=== PATIENT | male | born 1930 | race Caucasian/White ===

== ENCOUNTER 2017-08-06 13:49 | Observation (INO) ==
[2017-08-06] MEDS ORDERED: 0.9 % Sodium Chloride 1,000 ML IVC ONE (14:15)
[2017-08-06] MEDS ORDERED: *HR* FentaNYL (PF) 100 MCG/2 ML VIAL IVP ONE (14:16)
--- NOTE | 2017-08-06 14:19 | Emergency Department Note ---
Disposition Clinical Impression: Partial obstruction of small intestine Disposition: Admitted As Inpatient Condition: Fair Referrals: Shruthi Talamantes, JAMEEL [Primary Care Provider] - Forms: ED Satisfaction Letter, Work/School Release Time of Disposition: 16:04 Abdominal Pain HPI - General Chief Complaint: ED Abdominal Pain Stated Complaint: belly pain N/V Time Seen by Provider: 08/06/17 14:03 Source: patient Mode of arrival: private vehicle Limitations: no limitations Nursing Notes Reviewed: Yes Vital Signs Reviewed: Yes - History of Present Illness Pt Subjective Complaint: abdominal pain Onset (ago): day(s) Consistency: intermittent Location: LUQ, LLQ Pain Severity: moderate Pain Scale: 5 Quality: cramping, sharp Radiation: none Migration to: suprapubic Improves with: nothing Worsens with: nothing Associated symptoms: Reports: nausea, vomiting (One episode of vomiting this morning about 5:00.). Denies: diarrhea, constipation (Patient states he had a normal bowel movement just prior to coming to the ER.) - Related Data Home Medications Medication Instructions Recorded Confirmed Albuterol Sulfate [Proventil] 2 mg PO TID 10/26/15 03/10/17 Finasteride [Proscar] 5 mg PO DAILY 10/26/15 03/10/17 Fluticasone/Salmeterol [Advair 1 puff IN BID 10/26/15 03/10/17 250-50 Diskus] Furosemide [Lasix] 20 mg PO DAILY 10/26/15 03/10/17 Levothyroxine [Synthroid] 125 mcg PO DAILY 10/26/15 03/10/17 Meclizine [Antivert] 25 mg PO BID 10/26/15 03/10/17 Ropinirole HCl [Requip] 0.5 mg PO HS 10/26/15 03/10/17 Simvastatin [Zocor] 20 mg PO HS 10/26/15 03/10/17 Terazosin [Hytrin] 5 mg PO DAILY 10/26/15 03/10/17 Tiotropium [Spiriva] 1 mcg IH DAILY 10/26/15 03/10/17 Aspirin 81 mg PO DAILY 05/12/16 03/10/17 Carbidopa/Levodopa 1 tab PO TID 05/12/16 03/10/17 [Carbidopa-Levodopa 25-100 Tab] Famotidine [Pepcid] 20 mg PO DAILY 05/12/16 03/10/17 Entacapone [Comtan] 200 mg PO TID 03/10/17 03/10/17 Lisinopril [Zestril] 10 mg PO DAILY 03/10/17 03/10/17 Previous Rx's Medication Instructions Recorded Levothyroxine [Synthroid] 75 mcg PO DAILY #30 tablet 03/10/17 Allergies Allergy/AdvReac Type Severity Reaction Status Date / Time morphine AdvReac Confusion Verified 03/10/17 12:58 All systems ED: reviewed and negative except as stated. Constitutional: Reports: fever (Patient states he had a temperature of 101 this morning) Cardiovascular: Denies: chest pain Respiratory: Denies: dyspnea Gastrointestinal: Reports: abdominal pain, nausea, vomiting Genitourinary: Denies: urgency, dysuria, frequency Musculoskeletal: Denies: back pain Integumentary: Denies: rash Neurological: Denies: headache Abdominal Pain PMH - Past Medical History Medical history: Reports: atrial fibrillation, COPD, GERD, hyperlipidemia, hypertension, thyroid disease, TIA, other Male Surgical History: Reports: coronary bypass (CABG) Psychiatric history: Reports: no psych history - Social History Smoking status: Never smoker Alcohol use: Reports: rarely Drug use: Reports: none Physical Exam - General Limitations: no limitations General appearance: alert, in no apparent distress - Head Head exam: atraumatic, normocephalic, normal inspection - Eye Eye exam: Present: normal appearance, PERRL. Absent: scleral icterus, conjunctival injection - ENT ENT exam: normal exam, normal oropharynx, mucous membranes moist, normal external ear exam - Neck Neck exam: Present: normal inspection, full ROM, trachea midline - Chest Chest inspection: Present: normal inspection, symmetric chest wall rise. Absent : tenderness - Respiratory Respiratory exam: Present: normal lung sounds bilaterally. Absent: respiratory distress, wheezes - Cardiovascular Cardiovascular exam: Present: normal rhythm, tachycardia, normal heart sounds - Abdominal Exam Abdominal exam: Present: soft, tenderness, diminished bowel sounds. Absent: distention Abdominal tenderness: Present: LUQ, LLQ - Extremities Exam Extremities exam: Present: normal inspection. Absent: tenderness, pedal edema - Neurological Exam Neurological exam: Present: alert, oriented X3 - Psychiatric Psychiatric exam: Present: normal affect, normal mood - Skin Skin exam: Present: warm, dry. Absent: rash Course Course Narrative: Patient presents with a complaint of abdominal discomfort over the past couple days. It has been intermittent. This been located predominantly on the left hand side and sometimes suprapubically and a little bit over to the right. He describes it as crampy and sharp. He does not feel though his bowel movements have been affected. He did have nausea and vomiting this morning. He also had a temperature 101 this morning. He is afebrile here in the department. He is concerned about the possibility of a bowel obstruction or bowel infection. He has had both in the past. He saw his PCP yesterday and that examination showed that he was okay. He says he went home and his discomfort seemed to go away. It returned last night. My examination shows that tenderness and with a temperature 101 on concerned about diverticulitis or other bowel infection more so than obstruction, especially since he has had a normal bowel movement and is passing gas today. I ordered labs and medications for symptom relief. I ordered a CT scan. Disposition will be based on diagnostic results and reevaluation. - Reevaluation(s) Reevaluation #1: Patient remains comfortable in the bed. No vomiting. Lab work looks good. White count is normal. Lactic acid is normal. Lipase is normal. No evidence of urinary tract infection. CT scan of the abdomen indicated a partial small bowel obstruction. Patient is afebrile here and were not seeing any indication of abscess. There was a comment by the radiologist about atelectasis versus pneumonia. The patient has no pulmonary symptoms whatsoever. I do not feel that there is a pneumonia present. The patient would benefit from admission and got rest and IV hydration. I spoke with the hospitalist, Dr. Rahman, who accepted the patient for admission to the hospital. Time: 16:03 Vital Signs Temperature 98 F 08/06/17 13:51 Pulse Rate 120 08/06/17 13:51 Respiratory Rate 18 08/06/17 13:51 Blood Pressure 137/66 08/06/17 13:51 O2 Sat by Pulse Oximetry 93 08/06/17 13:51 Temperature 98 F 08/06/17 13:51 Pulse Rate 85 08/06/17 15:24 Respiratory Rate 18 08/06/17 15:24 Blood Pressure 126/67 08/06/17 15:24 O2 Sat by Pulse Oximetry 95 08/06/17 15:24 Oxygen Delivery Oxygen Delivery Room Air Abdominal Pain - Medical Records Medical records reviewed: Yes I reviewed the patient's medical records. - Lab Data Lab results reviewed: Yes I reviewed the patient's lab results. Result diagrams: 08/06/17 14:35 08/06/17 14:35 Lab Results 08/06/17 08/06/17 08/06/17 Range/Units 14:15 14:35 14:35 WBC 12.2 H (4.3-11.1) K/mcL RBC 4.65 (4.19-5.50) M/mcL Hgb 14.4 (12.9-16.9) g/dL Hct 42.1 (37.5-50.1) % MCV 90.5 (83.0-100.0) fL MCH 31.0 (28.0-33.3) pg MCHC 34.2 (31.6-35.5) g/dL RDW 13.9 (11.5-14.5) % Plt Count 240 (140-400) K/mcL MPV 8.8 L (9.4-12.4) fL Immature Gran % 0.4 (0-4) % Seg Neutrophils % 84.6 % Lymphocytes % 7.1 % Monocytes % 7.5 % Eosinophils % 0.1 % Basophils % 0.3 % Neutrophils # 10.3 H (1.6-8.9) K/mcL Lymphocytes # 0.9 (0.6-4.6) K/mcL Monocytes # 0.9 (0.0-1.3) K/mcL Eosinophils # 0.0 (0.0-0.6) K/mcL Basophils # 0.0 (0.0-0.2) K/mcL Sodium 133 L (136-145) mEq/L Potassium 4.3 (3.5-5.1) mEq/L Chloride 98 (98-107) mEq/L Carbon Dioxide 24 (23-29) mEq/L BUN 24 H (8-23) mg/dL Creatinine 1.07 (0.70-1.30) mg/dL Est GFR ( Amer) > 60 (> 60) Est GFR (Non-Af Amer) > 60 (> 60) BUN/Creatinine Ratio 22 (6-26) Glucose 131 H (70-105) mg/dL Calculated Osmolality 282 (280-300) Lactic Acid (0.5-2.2) mmol/L Calcium 9.5 (8.6-10.3) mg/dL Total Bilirubin 0.5 (0.3-1.0) mg/dL Direct Bilirubin 0.1 (0.0-0.2) mg/dL Indirect Bilirubin 0.4 (0.0-1.2) mg/dL AST 19 (13-39) Units/L ALT 28 (7-52) Units/L Alkaline Phosphatase 61 (34-104) Units/L Serum Total Protein 6.7 (6.4-8.9) g/dL Albumin 3.7 (3.5-5.7) g/dL Globulin 3.0 (2.4-3.5) g/dL Albumin/Globulin Ratio 1.2 (1.1-2.2) Lipase (11-82) Units/L Urine Color Yellow (Yellow) Urine Clarity Clear (Clear) Urine pH 5.5 (5.0-8.0) pH Units Ur Specific [place] 1.020 (1.010-1.025) Urine Protein 30 H (Neg-Trace) mg/dL Urine Glucose (UA) Normal (Normal) mg/dL Urine Ketones 15 H (Negative) mg/dL Urine Blood Trace-intact H (Negative) Urine Nitrite Negative (Negative) Urine Bilirubin Small H (Negative) Urine Urobilinogen Normal (Normal) mg/dL Ur Leukocyte Esterase Negative (Negative) Urine Microscopic RBC 0-3 (0-3) per hpf Urine Microscopic WBC 0-3 (0-3) per hpf Ur Squamous Epith Cells Few (None-Few) per lpf Urine Bacteria Few (None-Few) per hpf Hyaline Casts Few (None-Few) per lpf Urine Mucus Moderate H (Few) Ur Culture Indicated? NO (NO) 08/06/17 08/06/17 Range/Units 14:35 14:35 WBC (4.3-11.1) K/mcL RBC (4.19-5.50) M/mcL Hgb (12.9-16.9) g/dL Hct (37.5-50.1) % MCV (83.0-100.0) fL MCH (28.0-33.3) pg MCHC (31.6-35.5) g/dL RDW (11.5-14.5) % Plt Count (140-400) K/mcL MPV (9.4-12.4) fL Immature Gran % (0-4) % Seg Neutrophils % % Lymphocytes % % Monocytes % % Eosinophils % % Basophils % % Neutrophils # (1.6-8.9) K/mcL Lymphocytes # (0.6-4.6) K/mcL Monocytes # (0.0-1.3) K/mcL Eosinophils # (0.0-0.6) K/mcL Basophils # (0.0-0.2) K/mcL Sodium (136-145) mEq/L Potassium (3.5-5.1) mEq/L Chloride (98-107) mEq/L Carbon Dioxide (23-29) mEq/L BUN (8-23) mg/dL Creatinine (0.70-1.30) mg/dL Est GFR ( Amer) (> 60) Est GFR (Non-Af Amer) (> 60) BUN/Creatinine Ratio (6-26) Glucose (70-105) mg/dL Calculated Osmolality (280-300) Lactic Acid 1.3 (0.5-2.2) mmol/L Calcium (8.6-10.3) mg/dL Total Bilirubin (0.3-1.0) mg/dL Direct Bilirubin (0.0-0.2) mg/dL Indirect Bilirubin (0.0-1.2) mg/dL AST (13-39) Units/L ALT (7-52) Units/L Alkaline Phosphatase (34-104) Units/L Serum Total Protein (6.4-8.9) g/dL Albumin (3.5-5.7) g/dL Globulin (2.4-3.5) g/dL Albumin/Globulin Ratio (1.1-2.2) Lipase 10 L (11-82) Units/L Urine Color (Yellow) Urine Clarity (Clear) Urine pH (5.0-8.0) pH Units Ur Specific [place] (1.010-1.025) Urine Protein (Neg-Trace) mg/dL Urine Glucose (UA) (Normal) mg/dL Urine Ketones (Negative) mg/dL Urine Blood (Negative) Urine Nitrite (Negative) Urine Bilirubin (Negative) Urine Urobilinogen (Normal) mg/dL Ur Leukocyte Esterase (Negative) Urine Microscopic RBC (0-3) per hpf Urine Microscopic WBC (0-3) per hpf Ur Squamous Epith Cells (None-Few) per lpf Urine Bacteria (None-Few) per hpf Hyaline Casts (None-Few) per lpf Urine Mucus (Few) Ur Culture Indicated? (NO) - Radiology Data Radiology results reviewed: Yes I reviewed the patient's radiology results.
[2017-08-06 14:28] LABS: Bilirubin,Urine Small (Negative); Blood,Urine Trace-intact (Negative); Clarity,Urine Clear (Clear); Color,Urine Yellow (Yellow); Glucose,Urine (UA) Normal (Normal); Ketones,Urine 15 mg/dL (Negative); Leukocyte Esterase,Urine Negative (Negative); Nitrite,Urine Negative (Negative); PH,Urine 5.5 pH Units (5.0-8.0); Protein,Urine 30 mg/dL (Neg-Trace); Urobilinogen,Urine Normal (Normal)
[2017-08-06 14:36] LABS: RBC,Urine 0-3 per hpf (0-3)
[2017-08-06 14:37] LABS: Bacteria,Urine Few per hpf (None-Few); Hyaline Casts,Urine Few per lpf (None-Few); Mucus,Urine Moderate (Few); Squamous Epithelial Cell,Urine Few per lpf (None-Few); WBC,Urine 0-3 per hpf (0-3)
[2017-08-06 14:43] LABS: Basophils % 0.3 %; Eosinophils % 0.1 %; Hematocrit 42.1 % (37.5-50.1); Hemoglobin 14.4 g/dL (12.9-16.9); Immature Granulocytes % 0.4 % (0-4); Lymphocytes # 0.9 K/mcL (0.6-4.6); Lymphocytes % 7.1 %; Mean Corpuscular HGB Conc 34.2 g/dL (31.6-35.5); Mean Corpuscular Volume 90.5 fL (83.0-100.0); Mean Platelet Volume 8.8 fL (9.4-12.4); Monocytes # 0.9 K/mcL (0.0-1.3); Monocytes % 7.5 %; Neutrophils # 10.3 K/mcL (1.6-8.9); Platelet Count 240 K/mcL (140-400); Red Blood Count 4.65 M/mcL (4.19-5.50); Red Cell Distribution Width 13.9 % (11.5-14.5); Segmented Neutrophils % 84.6 %
[2017-08-06 15:00] LABS: Alanine Aminotransferase 28 Units/L (7-52); Albumin 3.7 g/dL (3.5-5.7); Albumin/Globulin Ratio 1.2 (1.1-2.2); Alkaline Phosphatase 61 Units/L (34-104); Aspartate Amino Transferase 19 Units/L (13-39); BUN/Creatinine Ratio 22 (6-26); Bilirubin,Direct 0.1 mg/dL (0.0-0.2); Bilirubin,Indirect 0.4 mg/dL (0.0-1.2); Bilirubin,Total 0.5 mg/dL (0.3-1.0); Blood Urea Nitrogen 24 mg/dL (8-23); Calcium 9.5 mg/dL (8.6-10.3); Carbon Dioxide 24 mEq/L (23-29); Chloride 98 mEq/L (98-107); Glucose 131 mg/dL (70-105); Osmolality,Calculated 282 (280-300); Potassium 4.3 mEq/L (3.5-5.1); Sodium 133 mEq/L (136-145); Total Protein 6.7 g/dL (6.4-8.9); eGFR For African Americans > 60 (> 60); eGFR For Non-African Americans > 60 (> 60)
[2017-08-06] MEDS ORDERED: Naloxone 0.4 MG/ML INJ IVP PRN (17:15)
[2017-08-07 04:34] LABS: Basophils % 0.4 %; Eosinophils # 0.1 K/mcL (0.0-0.6); Eosinophils % 1.6 %; Hematocrit 38.5 % (37.5-50.1); Hemoglobin 12.6 g/dL (12.9-16.9); Immature Granulocytes % 0.4 % (0-4); Lymphocytes # 1.2 K/mcL (0.6-4.6); Lymphocytes % 17.8 %; Mean Corpuscular HGB Conc 32.7 g/dL (31.6-35.5); Mean Corpuscular Volume 94.8 fL (83.0-100.0); Mean Platelet Volume 9.1 fL (9.4-12.4); Monocytes # 0.6 K/mcL (0.0-1.3); Monocytes % 8.7 %; Neutrophils # 4.8 K/mcL (1.6-8.9); Platelet Count 210 K/mcL (140-400); Red Blood Count 4.06 M/mcL (4.19-5.50); Red Cell Distribution Width 14.3 % (11.5-14.5); Segmented Neutrophils % 71.1 %
[2017-08-07] MEDS: 0.9 % Sodium Chloride 1,000 ML IVC SCH (04:54)
[2017-08-07 04:55] LABS: BUN/Creatinine Ratio 21 (6-26); Blood Urea Nitrogen 19 mg/dL (8-23); Calcium 8.5 mg/dL (8.6-10.3); Carbon Dioxide 24 mEq/L (23-29); Chloride 106 mEq/L (98-107); Glucose 87 mg/dL (70-105); Osmolality,Calculated 284 (280-300); Potassium 3.5 mEq/L (3.5-5.1); Sodium 136 mEq/L (136-145); eGFR For African Americans > 60 (> 60); eGFR For Non-African Americans > 60 (> 60)
--- NOTE | 2017-08-07 09:10 | Internal Med History&Physical ---
Date of Encounter: 08/07/17 Time of Encounter: 08:45 Assessment and Plan (1) Partial small bowel obstruction Current visit: Yes Status: Acute Will monitor clinically and advance diet as tolerated. (2) Hypothyroid Current visit: No Status: Chronic TSH was normal at 2.327 on 06/24/2017. Continue present dose Synthroid Qualifiers: Hypothyroidism type: unspecified Qualified Code(s): E03.9 - Hypothyroidism , unspecified (3) History of TIA (transient ischemic attack) Current visit: No Status: Chronic Continue aspirin (4) Anemia Current visit: Yes Status: Acute Hemoglobin was 12.6 in emergency room. We will order anemia testing in a.m. Qualifiers: Anemia type: unspecified type Qualified Code(s): D64.9 - Anemia, unspecified Internal Medicine - H&P: HPI Chief complaint: Vomiting Admitted From: Emergency Dept Plans for Post Hospital Care: Home History of present illness: Mr. Sharma is a 86 year old male who came to the hospital stating he had onset of abdominal cramping with nausea the evening of August 04. He saw his PCP the following day. No further diagnostic testing was felt to be needed since he seemed stable. Later in the evening after the office visit he again had nausea and a single episode of vomitus without blood. He came to emergency room on August 06 and was felt to have partial small bowel obstruction on abdominal CT scan. He was admitted to [facility] floor for ongoing care needs. He states he feels improved at the present time and has had no further vomiting. He still has slight nausea but no significant abdominal pain. He reports he has had partial or complete small bowel obstruction twice in the past that resolved without surgical intervention required. He has GERD but denies disorders of his liver gallbladder or exocrine pancreas. Past Med Surg Social Fam HX - Past Medical History Medical history: atrial fibrillation, COPD, GERD, hyperlipidemia, hypertension, thyroid disease, TIA, other Psychiatric history: no psych history - Past Surgical History Surgical History: carotid endarterectomy (right 09/2012), coronary bypass (CABG ) (09/2009), herniorrhaphy (bilateral inguinal), other (tonsillectomy) - Social History Smoking Status: Never smoker Smokeless Tobacco Status: No Alcohol use: rarely Drug use: none - Family History Father Family Member Ethnicity: Non- Living Status: Mother Family Member Ethnicity: Non- Living Status: Internal Medicine - H&P: Meds Albuterol Sulfate [Proventil] 2 mg PO TID 10/26/15 [History] Finasteride [Proscar] 5 mg PO DAILY 10/26/15 [History] Fluticasone/Salmeterol [Advair 250-50 Diskus] 1 puff IN BID 10/26/15 [History] Furosemide [Lasix] 20 mg PO DAILY 10/26/15 [History] Levothyroxine [Synthroid] 125 mcg PO DAILY 10/26/15 [History] Meclizine [Antivert] 25 mg PO BID 10/26/15 [History] Ropinirole HCl [Requip] 0.5 mg PO HS 10/26/15 [History] Simvastatin [Zocor] 20 mg PO HS 10/26/15 [History] Terazosin [Hytrin] 5 mg PO DAILY 10/26/15 [History] Tiotropium [Spiriva] 1 mcg IH DAILY 10/26/15 [History] Aspirin 81 mg PO DAILY 05/12/16 [History] Carbidopa/Levodopa [Carbidopa-Levodopa 25-100 Tab] 1 tab PO TID 05/12/16 [ History] Famotidine [Pepcid] 20 mg PO DAILY 05/12/16 [History] Entacapone [Comtan] 200 mg PO TID 03/10/17 [History] Levothyroxine [Synthroid] 75 mcg PO DAILY #30 tablet 03/10/17 [Rx] Lisinopril [Zestril] 10 mg PO DAILY 03/10/17 [History] 3 Allergy/AdvReac Type Severity Reaction Status Date / Time morphine AdvReac Confusion Verified 03/10/17 12:58 All Systems PM: A 10-system review of systems was performed and is negative for pertinent findings except as documented above in the HPI. Review of systems: Gen.: His weight has decreased from 79.379 kg on 05/12/2016 to 70.307 kg on admission now. Cardiovascular: He has history of hypertension and known ASHD status post 4 vessel CABG approximately 2010. He has not had a stress test or heart catheter since surgery. He has had no DVT or pulmonary emboli. Respiratory: He is a lifelong nonsmoker. He was diagnosed with asthma in childhood. He had PFTs mid 2012 and was told he had COPD. He wore oxygen for approximately one year for nocturnal hypoxemia but states he has not used it for at least 1 year and it has been removed from the home. He has not been tested for sleep apnea. GI: As per history of present illness : No history of hematuria dysuria or kidney stones Neurologic: He denies large distribution strokes or seizures. He thinks he had a possible TIA approximately 2011. Endocrine: He has no known diabetes. He has hypothyroidism and hyperlipidemia Hematology/oncology: He has had skin cancer but denies internal malignancies or anemia Psychiatric: He denies anxiety or depression or other mental health issues Muscle skeletal: Denies arthritis gout or other bone joint or muscle disorders. - Constitutional Vitals: Temp Pulse Resp BP Pulse Ox 98.1 F 95 17 160/79 95 08/07/17 07:00 08/07/17 07:00 08/07/17 07:00 08/07/17 07:00 08/07/17 08:29 Exam: Gen.: He is a well-developed well-nourished male resting comfortably in bed who appears in no severe distress at rest. HEENT: Head is atraumatic and normocephalic. Eyes: EOMI. There is no scleral icterus. Mouth: Mucosa is moist. Neck: Supple and nontender. There is no thyromegaly or adenopathy noted. Heart: Regular without murmurs gallops or ectopics Lungs: No wheezes or crackles are heard. Abdomen: Bowel sounds are diminished. There is mild tenderness to moderate palpation diffusely. No masses or guarding are noted. Extremities: There is no cyanosis edema or clubbing noted. Dorsalis pedis and posterior tibial pulses are trace to 1+ palpable bilaterally. Neurologic: Mental status: He is talkative and a good historian. Cranial nerves : Smile is symmetric. Forehead wrinkles bilaterally. Tongue protrudes midline. EOMI. Motor: There is no pronator drift. Cerebellar: Finger to nose is intact bilaterally. Skin: Warm and dry Internal Med - H&P Results - Labs CBC & Chem 7: 08/07/17 04:14 08/07/17 04:14 Labs: Short CBC 08/07/17 Range/Units 04:14 WBC 6.7 (4.3-11.1) K/mcL Hgb 12.6 L D (12.9-16.9) g/dL Hct 38.5 (37.5-50.1) % Plt Count 210 (140-400) K/mcL Neutrophils # 4.8 (1.6-8.9) K/mcL BMP 08/07/17 04:14 Sodium 136 Potassium 3.5 Chloride 106 Carbon Dioxide 24 BUN 19 Creatinine 0.89 Glucose 87 Calcium 8.5 L
[2017-08-07] MEDS: 0.45 % Sodium Chloride w/KCl 20 MEQ/1,000 ML MLS IVC SCH (15:08)
[2017-08-07] MEDS ORDERED: rOPINIRole 1 MG TABLET PO SCH (21:00)
[2017-08-07] MEDS: Budesonide/Formoterol 160/4.5 MDI IH SCH (21:55)
[2017-08-08] MEDS: 0.45 % Sodium Chloride w/KCl 20 MEQ/1,000 ML MLS IVC SCH (03:43)
[2017-08-08 06:00] LABS: Basophils % 0.5 %; Eosinophils # 0.1 K/mcL (0.0-0.6); Hematocrit 35.6 % (37.5-50.1); Hemoglobin 11.8 g/dL (12.9-16.9); Immature Granulocytes % 0.7 % (0-4); Lymphocytes # 0.9 K/mcL (0.6-4.6); Lymphocytes % 15.7 %; Mean Corpuscular HGB Conc 33.1 g/dL (31.6-35.5); Mean Corpuscular Volume 93.4 fL (83.0-100.0); Mean Platelet Volume 8.9 fL (9.4-12.4); Monocytes # 0.5 K/mcL (0.0-1.3); Monocytes % 8.7 %; Neutrophils # 4.2 K/mcL (1.6-8.9); Platelet Count 206 K/mcL (140-400); Red Blood Count 3.81 M/mcL (4.19-5.50); Red Cell Distribution Width 13.9 % (11.5-14.5); Segmented Neutrophils % 72.4 %
[2017-08-08] MEDS: 0.9 % Sodium Chloride 1,000 ML IVC SCH (08:08)
[2017-08-08] MEDS ORDERED: Furosemide 20 MG TABLET PO SCH (09:00)
[2017-08-08] MEDS ORDERED: Finasteride 5 MG TABLET PO SCH (09:00)
[2017-08-08 09:56] LABS: % Iron Saturation 11 % (20-55); Ferritin 101 ng/ml (20-250); Iron 28 mcg/dL (65-175); Transferrin 190 mg/dL (203-362)
[2017-08-08] MEDS ORDERED: Tiotropium 18 MCG inhalation IH SCH (10:00)
[2017-08-08 10:23] LABS: Vitamin B12 703 pg/mL (250-1100)
[2017-08-08 10:28] LABS: Folate > 22.3 ng/mL (3.0-16.0)
[2017-08-08 13:13] VITALS: BP 131/71
[2017-08-08] MEDS: Budesonide/Formoterol 160/4.5 MDI IH SCH (13:28)
--- NOTE | 2017-08-08 15:00 | Discharge Summary ---
Date of Encounter: 08/08/17 Time of Encounter: 14:50 - Discharge Diagnosis (1) Partial small bowel obstruction Priority: Primary Status: Resolved (2) Hypothyroid Priority: Secondary Status: Chronic Qualifiers: Hypothyroidism type: unspecified Qualified Code(s): E03.9 - Hypothyroidism , unspecified (3) History of TIA (transient ischemic attack) Priority: Secondary Status: Chronic (4) Anemia Priority: Secondary Status: Acute Qualifiers: Anemia type: unspecified type Qualified Code(s): D64.9 - Anemia, unspecified Hospital course: Mr. Sharma is a 86 year old male who came to the hospital stating he had onset of abdominal cramping with nausea the evening of August 04. He saw his PCP the following day. No further diagnostic testing was felt to be needed since he seemed stable. Later in the evening after the office visit he again had nausea and a single episode of vomitus without blood. He came to emergency room on August 06 and was felt to have partial small bowel obstruction on abdominal CT scan. He was admitted to [facility] for ongoing care needs. Initial orders written by the emergency room physician. I saw him on August 07 and performed the history and physical. He was given IV fluids and clear liquid diet. He had spontaneous resolution of his partial small bowel obstruction without further nausea or vomiting. He tolerated adequate amounts of oral intake without difficulty. He had flatus and on August 08 felt stable for discharge home. He will follow with his PCP Dr. Zamora within 1 week. Anemia testing showed iron 28, transferrin saturation 11%, transferrin 190, ferritin 101, B12 703, and folate > 22.3. He will be given prescriptions for ferrous sulfate and vitamin C at discharge. - Time Spent with Patient Total time spent providing and/or coordinating discharge services: - Discharge Medications Prescriptions: Ascorbic Acid [Vitamin C] 500 mg PO DAILY #30 tablet Ferrous Sulfate 325 mg PO DAILY #30 tablet Home Medications: Albuterol Sulfate [Proventil] 2 mg PO TID 10/26/15 [History] Finasteride [Proscar] 5 mg PO DAILY 10/26/15 [History] Fluticasone/Salmeterol [Advair 250-50 Diskus] 1 puff IN BID 10/26/15 [History] Furosemide [Lasix] 20 mg PO DAILY 10/26/15 [History] Levothyroxine [Synthroid] 125 mcg PO DAILY 10/26/15 [History] Meclizine [Antivert] 25 mg PO BID 10/26/15 [History] Ropinirole HCl [Requip] 0.5 mg PO HS 10/26/15 [History] Simvastatin [Zocor] 20 mg PO HS 10/26/15 [History] Terazosin [Hytrin] 5 mg PO DAILY 10/26/15 [History] Tiotropium [Spiriva] 1 mcg IH DAILY 10/26/15 [History] Aspirin 81 mg PO DAILY 05/12/16 [History] Carbidopa/Levodopa [Carbidopa-Levodopa 25-100 Tab] 1 tab PO TID 05/12/16 [ History] Famotidine [Pepcid] 20 mg PO DAILY 05/12/16 [History] Entacapone [Comtan] 200 mg PO TID 03/10/17 [History] Levothyroxine [Synthroid] 75 mcg PO DAILY #30 tablet 03/10/17 [Rx] Lisinopril [Zestril] 10 mg PO DAILY 03/10/17 [History] Ascorbic Acid [Vitamin C] 500 mg PO DAILY #30 tablet 08/08/17 [Rx] Ferrous Sulfate 325 mg PO DAILY #30 tablet 08/08/17 [Rx] Allergies/Adverse Reactions: 3 Allergy/AdvReac Type Severity Reaction Status Date / Time morphine AdvReac Confusion Verified 03/10/17 12:58 Date of admission: 08/06/17 16:22 Primary care physician: Shruthi Talamantes CNP - Constitutional Vitals: Temp Pulse Resp BP Pulse Ox 97.7 F 73 15 131/71 92 08/08/17 11:37 08/08/17 11:37 08/08/17 13:33 08/08/17 11:37 08/08/17 13:33 - Patient Status Disposition: Home, Self-Care Condition: Fair Functional capacity at discharge: independent ambulation Overall status at discharge: patient is progressing back to baseline - Discharge Instructions Follow Up With: Shruthi Talamantes CNP [Primary Care Provider] - 1 week - Diet and Activity Diet: advance to your usual diet
== END 2017-08-08 15:14 | disposition home or self-care (01) ==
LOC: INPPIK 13:49 → EMEROOPIK 13:49 → INPPIK 16:46
PROVIDERS: ADMIT Emergency Medicine; ATTEND Internal Medicine

== ENCOUNTER 2018-03-17 13:05 | Inpatient (IN) ==
[2018-03-17] MEDS ORDERED: 0.9 % Sodium Chloride 1,000 ML IVC ONE ×2 (13:10→14:37)
[2018-03-17] MEDS ORDERED: Isovue-370 500 ML INFUS..BTL IV ONE ×2 (13:11→15:42)
[2018-03-17] MEDS ORDERED: Ondansetron 4 MG/2 ML VIAL IVP ONE ×3 (13:11→15:42)
--- NOTE | 2018-03-17 13:11 | Emergency Department Note ---
Disposition Clinical Impression: Partial small bowel obstruction Disposition: Admitted As Inpatient Condition: Good Referrals: Shruthi Talamantes, JAMEEL [Primary Care Provider] - Forms: ED Satisfaction Letter Time of Disposition: 14:49 Abdominal Pain HPI - General Chief Complaint: ED Abdominal Pain Stated Complaint: RT SIDED ABDOMINAL PAIN AND NAUSEA Time Seen by Provider: 03/17/18 13:09 Source: patient Mode of arrival: ambulatory Limitations: no limitations Nursing Notes Reviewed: Yes Vital Signs Reviewed: Yes - History of Present Illness HPI Narrative: 87-year-old gentleman who presents today with belly pain that started this morning. Some nausea but no vomiting. No diarrhea or loose stools. He states he had a normal bowel movement yesterday. He states he has a history of partial bowel obstructions. He has not had surgery for this. He states a long time ago he had an exploratory laparotomy and that is why he gets partial bowel obstructions. He has not required surgery to fix the bowel obstructions. He states that he spent the night in the hospital couple times and that is resolved spontaneously. He denies any fevers she denies any chills. States she is not hungry today because of the nausea. Pt Subjective Complaint: abdominal pain - Related Data Home Medications Medication Instructions Recorded Confirmed Albuterol Sulfate [Proventil] 2 mg PO TID 10/26/15 03/17/18 Finasteride [Proscar] 5 mg PO DAILY 10/26/15 03/17/18 Fluticasone/Salmeterol [Advair 1 puff IN BID 10/26/15 03/17/18 250-50 Diskus] Furosemide [Lasix] 20 mg PO DAILY 10/26/15 03/17/18 Meclizine [Antivert] 25 mg PO BID 10/26/15 03/17/18 Ropinirole HCl [Requip] 0.5 mg PO HS 10/26/15 03/17/18 Simvastatin [Zocor] 20 mg PO HS 10/26/15 03/17/18 Terazosin [Hytrin] 5 mg PO DAILY 10/26/15 03/17/18 Tiotropium [Spiriva] 1 mcg IH DAILY 10/26/15 03/17/18 Aspirin 81 mg PO DAILY 05/12/16 03/17/18 Famotidine [Pepcid] 20 mg PO DAILY 05/12/16 03/17/18 Lisinopril [Zestril] 10 mg PO DAILY 03/10/17 03/17/18 Previous Rx's Medication Instructions Recorded Levothyroxine [Synthroid] 75 mcg PO DAILY #30 tablet 03/10/17 Ascorbic Acid [Vitamin C] 500 mg PO DAILY #30 tablet 08/08/17 Ferrous Sulfate 325 mg PO DAILY #30 tablet 08/08/17 Allergies Allergy/AdvReac Type Severity Reaction Status Date / Time morphine AdvReac Confusion Verified 02/19/18 10:59 Review of Systems: All other systems are negative except as noted/marked Chart generated with voice recognition software Nursing notes reviewed Old records reviewed Abdominal Pain PMH - Past Medical History Medical history: Reports: cardiomyopathy, diabetes, hypertension Male Surgical History: Reports: coronary bypass (CABG) Psychiatric history: Reports: no psych history - Social History Smoking status: Never smoker Alcohol use: Reports: none Drug use: Reports: none Physical Exam General: NAD, VSS Head: normocephalic, atraumatic Eyes: EOMI, PERRLA mouth: moist mucous membranes Neck: NO CLA, Supple Chest wall: normal rise, no crepitus, no deformity noted Lungs: moving air well, no distress Heart: RRR, no murmur Abd: Hyperactive tympanic bowel sounds nontender : deferred MSK: strength equal in all four extremities Ext: moves all four extremities, no obvious deformities Skin: cap refill normal, warm, dry neuro : CN2-12 grossly intact, A&Ox3 Psych: normal affect, not anxious Course Vital Signs Temperature 98.4 F 03/17/18 13:08 Pulse Rate 64 03/17/18 13:08 Respiratory Rate 16 03/17/18 13:08 Blood Pressure 148/69 03/17/18 13:08 O2 Sat by Pulse Oximetry 95 03/17/18 13:08 Temperature 98.4 F 03/17/18 13:08 Pulse Rate 65 03/17/18 14:15 Respiratory Rate 16 03/17/18 14:15 Blood Pressure 141/86 03/17/18 14:15 O2 Sat by Pulse Oximetry 95 03/17/18 14:15 Oxygen Delivery Oxygen Delivery Room Air Abdominal Pain - MDM Narrative Medical decision making narrative: Patient presents today with abdominal pain nausea and not feeling well stating he thinks he has another bowel ejection. He does have a partial bowel obstruction today. He is only has nausea is not been vomiting as I had any diarrhea and did have a normal bowel movement yesterday. We discussed that he is probably going to need to be nothing by mouth and given IV hydration while this resolves. I spoke with Dr. Josiah Alvarado hospitalist who agreed that he could monitor him here and if things are worsen he would transfer him otherwise patient has good potential to improve as he has had this multiple times in the past his never required surgical intervention. Patient is agreeable to this plan. - Medical Records Medical records reviewed: Yes I reviewed the patient's medical records. - Lab Data Lab results reviewed: Yes I reviewed the patient's lab results. Result diagrams: 03/17/18 13:25 03/17/18 13:25 Lab Results 03/17/18 03/17/18 03/17/18 Range/Units 13:25 13:25 13:38 WBC 9.2 (4.3-11.1) K/mcL RBC 4.25 (4.19-5.50) M/mcL Hgb 13.4 (12.9-16.9) g/dL Hct 39.5 (37.5-50.1) % MCV 92.9 (83.0-100.0) fL MCH 31.5 (28.0-33.3) pg MCHC 33.9 (31.6-35.5) g/dL RDW 13.8 (11.5-14.5) % Plt Count 211 (140-400) K/mcL MPV 8.8 L (9.4-12.4) fL Immature Gran % 0.8 (0-4) % Seg Neutrophils % 80.0 % Lymphocytes % 9.8 % Monocytes % 7.2 % Eosinophils % 1.7 % Basophils % 0.5 % Neutrophils # 7.3 (1.6-8.9) K/mcL Lymphocytes # 0.9 (0.6-4.6) K/mcL Monocytes # 0.7 (0.0-1.3) K/mcL Eosinophils # 0.2 (0.0-0.6) K/mcL Basophils # 0.1 (0.0-0.2) K/mcL Sodium 138 (136-145) mEq/L Potassium 4.2 (3.5-5.1) mEq/L Chloride 104 (98-107) mEq/L Carbon Dioxide 25 (23-29) mEq/L BUN 18 (8-23) mg/dL Creatinine 0.87 (0.70-1.30) mg/dL Est GFR ( Amer) > 60 (> 60) Est GFR (Non-Af Amer) > 60 (> 60) BUN/Creatinine Ratio 21 (6-26) Glucose 125 H (70-105) mg/dL Calculated Osmolality 289 (280-300) Calcium 9.3 (8.6-10.3) mg/dL Total Bilirubin 0.3 (0.3-1.0) mg/dL Direct Bilirubin 0.1 (0.0-0.2) mg/dL Indirect Bilirubin 0.2 (0.0-1.2) mg/dL AST 18 (13-39) Units/L ALT 18 (7-52) Units/L Alkaline Phosphatase 55 (34-104) Units/L Serum Total Protein 6.3 L (6.4-8.9) g/dL Albumin 3.7 (3.5-5.7) g/dL Globulin 2.6 (2.4-3.5) g/dL Albumin/Globulin Ratio 1.4 (1.1-2.2) Lipase 20 (11-82) Units/L Urine Color Yellow (Yellow) Urine Clarity Clear (Clear) Urine pH 7.0 (5.0-8.0) pH Units Ur Specific [place] 1.020 (1.010-1.025) Urine Protein Negative (Neg-Trace) mg/dL Urine Glucose (UA) Normal (Normal) mg/dL Urine Ketones Negative (Negative) mg/dL Urine Blood Trace-intact H (Negative) Urine Nitrite Negative (Negative) Urine Bilirubin Negative (Negative) Urine Urobilinogen Normal (Normal) mg/dL Ur Leukocyte Esterase Negative (Negative) Urine Microscopic RBC 0-3 (0-3) per hpf Urine Microscopic WBC 0-3 (0-3) per hpf Ur Squamous Epith Cells Few (None-Few) per lpf Urine Bacteria Few (None-Few) per hpf Urine Mucus Few (Few) Ur Culture Indicated? NO (NO) - Radiology Data Radiology results reviewed: Yes I reviewed the patient's radiology results. EXAMINATION: CT OF THE ABDOMEN AND PELVIS WITH CONTRAST 03/17/2018 2:13 pm TECHNIQUE: CT of the abdomen and pelvis was performed with the administration of intravenous contrast. Multiplanar reformatted images are provided for review. Dose modulation, iterative reconstruction, and/or weight based adjustment of the mA/kV was utilized to reduce the radiation dose to as low as reasonably achievable. COMPARISON: 08/06/2017, 06/10/2013, 04/13/2013 HISTORY: ORDERING SYSTEM PROVIDED HISTORY: abd pain hx of obstruction 70 ml of [id number] Initial encounter of acute right abdominal pain and cramping with nausea. FINDINGS: Lower Chest: There is a moderate size hiatal hernia. No acute abnormality in the lung bases. There is mild bibasilar atelectasis. Organs: Liver enhances normally without evidence of intrahepatic biliary ductal dilatation. Portal vein is patent. Small stones layering within the gallbladder. No CT evidence of acute cholecystitis. The pancreas is unremarkable in appearance. No evidence of focal adrenal nodule. No evidence of focal splenic lesion or splenomegaly. Scattered calcified granulomata are noted in the spleen. The kidneys enhance symmetrically without evidence of hydronephrosis. GI/Bowel: The stomach and duodenal sweep are otherwise unremarkable. 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 This has remained stable since 2012. 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 There are dilated loops of small bowel in the left abdomen and left lower quadrant with transition point in the left lower quadrant likely representing a partial localized small-bowel obstruction secondary to adhesions. Pelvis: Bladder is unremarkable. Prostate is unremarkable. Peritoneum/Retroperitoneum: No evidence of retroperitoneal lymphadenopathy. Mild atherosclerotic calcifications are noted of the aorta and iliac vessels. No evidence of aortic aneurysm. Bones/Soft Tissues: Age related degenerative changes of the visualized osseous structures without focal destructive lesion. CT/CT abd pelvis w iv no oral IMPRESSION: Stable calcified irregular mass at the root of the mesentery stable since 2012. 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 Differential also includes remote calcified sclerosing mesenteritis. Calcified desmoid tumor and calcified carcinoid tumor is less likely given the stability of the mass. Tethered bowel loops in the left lower quadrant with mild bowel dilatation suggesting partial low-grade bowel obstruction. No evidence of a complete mechanical obstruction. Incidentally noted moderate size hiatal hernia. Incidentally noted cholelithiasis without evidence of acute cholecystitis. D/ / 03/17/2018 14:29:29 Jaguar Garay MD / prince Interpreting Provider: Jaguar Garay MD
[2018-03-17 13:37] LABS: Basophils # 0.1 K/mcL (0.0-0.2); Basophils % 0.5 %; Eosinophils # 0.2 K/mcL (0.0-0.6); Eosinophils % 1.7 %; Hematocrit 39.5 % (37.5-50.1); Hemoglobin 13.4 g/dL (12.9-16.9); Immature Granulocytes % 0.8 % (0-4); Lymphocytes # 0.9 K/mcL (0.6-4.6); Lymphocytes % 9.8 %; Mean Corpuscular HGB Conc 33.9 g/dL (31.6-35.5); Mean Corpuscular Hemoglobin 31.5 pg (28.0-33.3); Mean Corpuscular Volume 92.9 fL (83.0-100.0); Mean Platelet Volume 8.8 fL (9.4-12.4); Monocytes # 0.7 K/mcL (0.0-1.3); Monocytes % 7.2 %; Neutrophils # 7.3 K/mcL (1.6-8.9); Platelet Count 211 K/mcL (140-400); Red Blood Count 4.25 M/mcL (4.19-5.50); Red Cell Distribution Width 13.8 % (11.5-14.5)
[2018-03-17 13:41] LABS: Bilirubin,Urine Negative (Negative); Blood,Urine Trace-intact (Negative); Clarity,Urine Clear (Clear); Color,Urine Yellow (Yellow); Glucose,Urine (UA) Normal (Normal); Ketones,Urine Negative (Negative); Leukocyte Esterase,Urine Negative (Negative); Nitrite,Urine Negative (Negative); Protein,Urine Negative (Neg-Trace); Urobilinogen,Urine Normal (Normal)
[2018-03-17 13:50] LABS: Alanine Aminotransferase 18 Units/L (7-52); Albumin 3.7 g/dL (3.5-5.7); Albumin/Globulin Ratio 1.4 (1.1-2.2); Alkaline Phosphatase 55 Units/L (34-104); Aspartate Amino Transferase 18 Units/L (13-39); BUN/Creatinine Ratio 21 (6-26); Bilirubin,Direct 0.1 mg/dL (0.0-0.2); Bilirubin,Indirect 0.2 mg/dL (0.0-1.2); Bilirubin,Total 0.3 mg/dL (0.3-1.0); Blood Urea Nitrogen 18 mg/dL (8-23); Calcium 9.3 mg/dL (8.6-10.3); Carbon Dioxide 25 mEq/L (23-29); Chloride 104 mEq/L (98-107); Globulin 2.6 g/dL (2.4-3.5); Glucose 125 mg/dL (70-105); Lipase 20 Units/L (11-82); Osmolality,Calculated 289 (280-300); Potassium 4.2 mEq/L (3.5-5.1); Sodium 138 mEq/L (136-145); Total Protein 6.3 g/dL (6.4-8.9); eGFR For Non-African Americans > 60 (> 60)
[2018-03-17 13:53] LABS: Bacteria,Urine Few per hpf (None-Few); Mucus,Urine Few (Few); RBC,Urine 0-3 per hpf (0-3); Squamous Epithelial Cell,Urine Few per lpf (None-Few); WBC,Urine 0-3 per hpf (0-3)
[2018-03-17] MEDS ORDERED: *HR* FentaNYL (PF) 100 MCG/2 ML VIAL IVP PRN (15:42)
[2018-03-17] MEDS ORDERED: Naloxone 0.4 MG/ML INJ IVP PRN (15:42)
[2018-03-17] MEDS ORDERED: Ibuprofen 400 MG TABLET PO PRN (15:42)
[2018-03-17] MEDS ORDERED: Ondansetron 4 MG/2 ML VIAL IVP PRN (15:42)
[2018-03-17] MEDS ORDERED: *HR* HYDROcodone/Acet 5/325 mg TABLET PO PRN (15:42)
[2018-03-17] MEDS ORDERED: MOM Conc 10 ML UD.LIQ PO PRN (15:42)
[2018-03-17] MEDS ORDERED: Acetaminophen 325 MG TABLET PO PRN (15:42)
[2018-03-17] MEDS: ALBUTEROL SULFATE 2 MG PO SCH ×2 (16:47→20:48)
[2018-03-17] MEDS: rOPINIRole 1 MG TABLET PO SCH (20:40)
[2018-03-17] MEDS: 0.9 % Sodium Chloride 1,000 ML IVC SCH (20:46)
[2018-03-17] MEDS: Budesonide/Formoterol 80/4.5 MDI IH SCH (21:24)
[2018-03-18 04:16] LABS: Basophils # 0.1 K/mcL (0.0-0.2); Basophils % 0.7 %; Eosinophils # 0.2 K/mcL (0.0-0.6); Eosinophils % 3.3 %; Hematocrit 38.5 % (37.5-50.1); Hemoglobin 12.8 g/dL (12.9-16.9); Immature Granulocytes % 0.6 % (0-4); Lymphocytes % 13.5 %; Mean Corpuscular HGB Conc 33.2 g/dL (31.6-35.5); Mean Corpuscular Hemoglobin 31.4 pg (28.0-33.3); Mean Corpuscular Volume 94.4 fL (83.0-100.0); Mean Platelet Volume 8.4 fL (9.4-12.4); Monocytes # 0.8 K/mcL (0.0-1.3); Monocytes % 10.4 %; Neutrophils # 5.1 K/mcL (1.6-8.9); Platelet Count 204 K/mcL (140-400); Red Blood Count 4.08 M/mcL (4.19-5.50); Red Cell Distribution Width 13.8 % (11.5-14.5); Segmented Neutrophils % 71.5 %
[2018-03-18] MEDS: 0.9 % Sodium Chloride 1,000 ML IVC SCH ×2 (04:29→07:41)
[2018-03-18 04:42] LABS: BUN/Creatinine Ratio 19 (6-26); Blood Urea Nitrogen 14 mg/dL (8-23); Calcium 8.5 mg/dL (8.6-10.3); Carbon Dioxide 24 mEq/L (23-29); Chloride 108 mEq/L (98-107); Glucose 106 mg/dL (70-105); Osmolality,Calculated 287 (280-300); Potassium 3.9 mEq/L (3.5-5.1); Sodium 138 mEq/L (136-145); eGFR For Non-African Americans > 60 (> 60)
[2018-03-18] MEDS ORDERED: Furosemide 20 MG TABLET PO SCH (09:00)
[2018-03-18] MEDS ORDERED: Tiotropium 18 MCG inhalation IH SCH (10:00)
--- NOTE | 2018-03-18 10:11 | Internal Med History&Physical ---
Date of Encounter: 03/18/18 Time of Encounter: 09:40 Assessment and Plan (1) Partial small bowel obstruction Current visit: No Status: Acute Consider conservative treatment with IV fluids and nothing by mouth except ice chips. Reassess tomorrow. (2) Hypertension Current visit: No Status: Chronic Continue lisinopril and Hytrin. Qualifiers: Hypertension type: essential hypertension Qualified Code(s): I10 - Essential (primary) hypertension (3) Hypothyroid Current visit: No Status: Chronic TSH was normal at 2.327 on 06/24/2017. Continue Synthroid. Qualifiers: Hypothyroidism type: unspecified Qualified Code(s): E03.9 - Hypothyroidism , unspecified (4) Anemia Current visit: No Status: Acute Anemia testing in a.m. Qualifiers: Anemia type: unspecified type Qualified Code(s): D64.9 - Anemia, unspecified Internal Medicine - H&P: HPI Chief complaint: Abdominal discomfort, nausea Admitted From: Emergency Dept Plans for Post Hospital Care: Home History of present illness: Mr. Sharma is a 87 year old male came to emergency room complaining of, cramps and nausea onset 0900 day of admission. He had no vomiting or diarrhea. When symptoms did not resolve after a few hours he came to emergency room for evaluation. Abdominal/pelvic CT showed possible early partial small bowel obstruction. He was admitted to [facility] floor for ongoing care needs. He reports he has had previous similar episodes 4-5 times. Each episode has resolved spontaneously without requiring surgery. He was told by a surgeon at [facility] etiology was possibly due to adhesions from exploratory laparotomy many years ago. He has GERD but denies disorders of his liver gallbladder or exocrine pancreas. He states his abdominal cramping has significantly lessened at the present time. Past Med Surg Social Fam HX - Past Medical History Medical history: cardiomyopathy, hypertension Additional medical history: HYPOGLYCEMIA Psychiatric history: no psych history - Past Surgical History Surgical History: carotid endarterectomy (right 09/2012), coronary bypass (CABG ) (09/2009), herniorrhaphy (bilateral inguinal), other (tonsillectomy) Additional surgical history: exploratory lap with removal of abd mass, double hernia repair with revision, bowel blockage. - Social History Smoking Status: Never smoker Smokeless Tobacco Status: No Alcohol use: none Drug use: none - Family History Father Family Member Ethnicity: Non- Living Status: Mother Family Member Ethnicity: Non- Living Status: Internal Medicine - H&P: Meds Albuterol Sulfate [Proventil] 2 mg PO TID 10/26/15 [History] Finasteride [Proscar] 5 mg PO DAILY 10/26/15 [History] Fluticasone/Salmeterol [Advair 250-50 Diskus] 1 puff IN BID 10/26/15 [History] Furosemide [Lasix] 20 mg PO DAILY 10/26/15 [History] Meclizine [Antivert] 25 mg PO BID 10/26/15 [History] Ropinirole HCl [Requip] 0.5 mg PO HS 10/26/15 [History] Simvastatin [Zocor] 20 mg PO HS 10/26/15 [History] Terazosin [Hytrin] 5 mg PO DAILY 10/26/15 [History] Tiotropium [Spiriva] 1 mcg IH DAILY 10/26/15 [History] Aspirin 81 mg PO DAILY 05/12/16 [History] Famotidine [Pepcid] 20 mg PO DAILY 05/12/16 [History] Levothyroxine [Synthroid] 75 mcg PO DAILY #30 tablet 03/10/17 [Rx] Lisinopril [Zestril] 10 mg PO DAILY 03/10/17 [History] Ascorbic Acid [Vitamin C] 500 mg PO DAILY #30 tablet 08/08/17 [Rx] Ferrous Sulfate 325 mg PO DAILY #30 tablet 08/08/17 [Rx] 3 Allergy/AdvReac Type Severity Reaction Status Date / Time morphine AdvReac Confusion Verified 02/19/18 10:59 All Systems PM: A 10-system review of systems was performed and is negative for pertinent findings except as documented above in the HPI. Review of systems: Review of systems from his August 2017 [facility] hospitalization were reviewed and revised as below. Gen.: His weight decreased from 79.379 kg on 05/12/2016 to 70.307 kg on admission August 2017 but has returned to 79.379 kg now. 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 He has not had a stress test or heart catheter since surgery. He has had no DVT or pulmonary emboli. He had right carotid endarterectomy September 2012. Respiratory: He is a lifelong nonsmoker. He was diagnosed with asthma in childhood. He had PFTs mid 2012 and was told he had COPD. He wore oxygen for approximately one year for nocturnal hypoxemia but states he has not used it for at least 1 year and it has been removed from the home. He has not been tested for sleep apnea. GI: As per history of present illness : No history of hematuria dysuria or kidney stones Neurologic: He denies large distribution strokes or seizures. He thinks he had a possible TIA approximately 2011. Endocrine: He has no known diabetes. He has hypothyroidism and hyperlipidemia Hematology/oncology: He has had skin cancer but denies internal malignancies or anemia Psychiatric: He denies anxiety or depression or other mental health issues Muscle skeletal: Denies arthritis gout or other bone joint or muscle disorders. - Constitutional Vitals: Temp Pulse Resp BP Pulse Ox 98.6 F 71 14 136/69 93 03/18/18 08:13 03/18/18 08:13 03/18/18 08:13 03/18/18 08:13 03/18/18 08:13 Exam: Gen.: He is a well-developed well-nourished male resting comfortably in bed who appears in no severe distress at present time HEENT: Head is atraumatic and normocephalic. Eyes: EOMI. There is no scleral icterus. Mouth: Mucosa is moist. Neck: Supple and nontender. There is no thyromegaly or adenopathy noted. Heart: Regular without murmurs gallops or ectopics Lungs: No wheezes or crackles are heard. Abdomen: Bowel sounds are diminished. The abdomen is nontender to palpation except for very slight tenderness in the left lower quadrant. No masses or guarding are noted. Extremities: There is no cyanosis edema or clubbing noted. Dorsalis pedis and posttibial pulses are 1-2 over 2 bilaterally. Neurologic: Mental status: He is talkative and a good historian. Cranial nerves : Smile is symmetric. Forehead wrinkles bilaterally. Tongue protrudes midline. EOMI. Motor: There is no pronator drift. Cerebellar: Finger to nose is intact bilaterally. Skin: Warm and dry Internal Med - H&P Results - Labs CBC & Chem 7: 03/18/18 03:59 03/18/18 03:59 Labs: Short CBC 03/18/18 Range/Units 03:59 WBC 7.2 (4.3-11.1) K/mcL Hgb 12.8 L (12.9-16.9) g/dL Hct 38.5 (37.5-50.1) % Plt Count 204 (140-400) K/mcL Neutrophils # 5.1 (1.6-8.9) K/mcL BMP 03/18/18 03:59 Sodium 138 Potassium 3.9 Chloride 108 H Carbon Dioxide 24 BUN 14 Creatinine 0.74 Glucose 106 H Calcium 8.5 L
[2018-03-18] MEDS: Budesonide/Formoterol 80/4.5 MDI IH SCH ×2 (10:14→22:09)
[2018-03-18] MEDS: 0.45 % Sodium Chloride w/KCl 20 MEQ/1,000 ML MLS IVC SCH ×2 (11:11→20:42)
[2018-03-18] MEDS: Aspirin 81 MG TAB.CHEW PO SCH (11:13)
[2018-03-18] MEDS: Finasteride 5 MG TABLET PO SCH (11:13)
[2018-03-18] MEDS: Famotidine 20 MG TABLET PO SCH (11:13)
[2018-03-18] MEDS: ALBUTEROL SULFATE 2 MG PO SCH ×3 (11:14→21:13)
[2018-03-18] MEDS: rOPINIRole 1 MG TABLET PO SCH (20:41)
[2018-03-19] MEDS: Mag Hydrox/Al Hydrox/Simeth 30 ML UDC PO PRN ×2 (03:53→21:47)
[2018-03-19 06:28] LABS: Basophils % 0.6 %; Eosinophils # 0.2 K/mcL (0.0-0.6); Eosinophils % 3.3 %; Hematocrit 38.9 % (37.5-50.1); Hemoglobin 13.1 g/dL (12.9-16.9); Immature Granulocytes % 0.6 % (0-4); Lymphocytes # 1.1 K/mcL (0.6-4.6); Mean Corpuscular HGB Conc 33.7 g/dL (31.6-35.5); Mean Corpuscular Hemoglobin 31.8 pg (28.0-33.3); Mean Corpuscular Volume 94.4 fL (83.0-100.0); Mean Platelet Volume 9.2 fL (9.4-12.4); Monocytes # 0.6 K/mcL (0.0-1.3); Monocytes % 9.8 %; Neutrophils # 4.3 K/mcL (1.6-8.9); Platelet Count 204 K/mcL (140-400); Red Blood Count 4.12 M/mcL (4.19-5.50); Red Cell Distribution Width 13.5 % (11.5-14.5); Segmented Neutrophils % 67.7 %
[2018-03-19] MEDS: 0.45 % Sodium Chloride w/KCl 20 MEQ/1,000 ML MLS IVC SCH (06:46)
[2018-03-19 06:48] LABS: BUN/Creatinine Ratio 18 (6-26); Blood Urea Nitrogen 13 mg/dL (8-23); Calcium 8.9 mg/dL (8.6-10.3); Carbon Dioxide 22 mEq/L (23-29); Chloride 107 mEq/L (98-107); Glucose 90 mg/dL (70-105); Magnesium 2.1 mg/dL (1.6-2.6); Osmolality,Calculated 284 (280-300); Sodium 137 mEq/L (136-145); eGFR For Non-African Americans > 60 (> 60)
[2018-03-19 06:59] LABS: Thyroid Stimulating Hormone 2.618 mcIU/mL (0.340-5.600)
[2018-03-19 07:05] LABS: Platelet Estimate Normal (Normal)
[2018-03-19] MEDS: Aspirin 81 MG TAB.CHEW PO SCH (09:06)
[2018-03-19] MEDS: Finasteride 5 MG TABLET PO SCH (09:07)
[2018-03-19] MEDS: Famotidine 20 MG TABLET PO SCH (09:07)
[2018-03-19] MEDS: ALBUTEROL SULFATE 2 MG PO SCH ×3 (09:07→20:17)
[2018-03-19] MEDS: Budesonide/Formoterol 80/4.5 MDI IH SCH ×2 (09:32→22:13)
[2018-03-19] MEDS: Tiotropium 18 MCG inhalation IH SCH (09:32)
--- NOTE | 2018-03-19 15:43 | Internal Med Progress Note ---
Date of Encounter: 03/19/18 Time of Encounter: 15:35 - Assessment and plan (1) Partial small bowel obstruction Current Visit: No Status: Acute Assessment and plan: March 19. Appears to be resolving. Advance diet. Anticipate discharge home tomorrow if stable (2) Hypertension Current Visit: No Status: Chronic Assessment and plan: March 19. Continue lisinopril and Hytrin. Qualifiers: Hypertension type: essential hypertension Qualified Code(s): I10 - Essential (primary) hypertension (3) Hypothyroid Current Visit: No Status: Chronic Assessment and plan: March 19. TSH was normal at 2.327 on 06/24/2017. Continue Synthroid. Qualifiers: Hypothyroidism type: unspecified Qualified Code(s): E03.9 - Hypothyroidism , unspecified (4) Anemia Current Visit: No Status: Acute Assessment and plan: March 19. Hemoglobin now normal at 13.1. Anemia testing showed iron 50, transferrin saturation 19%, transferrin 192, and ferritin 130. Qualifiers: Anemia type: unspecified type Qualified Code(s): D64.9 - Anemia, unspecified - Subjective Interval history: March 19. He has no new complaints and feels improved. He tolerated clear liquid lunch without difficulty. - Constitutional Vitals: Temp Pulse Resp BP Pulse Ox 98.7 F 64 16 111/54 94 03/19/18 10:36 03/19/18 10:36 03/19/18 10:36 03/19/18 10:36 03/19/18 10:36 Exam: He is resting comfortably in bed and appears in no acute distress. His affect is cheerful. Abdomen shows bowel sounds present without high-pitched tones and is nontender to palpation. I reviewed his medications and lab results. Internal Medicine: Result - Labs CBC & Chem 7: 03/19/18 05:40 03/19/18 05:40 Labs: Short CBC 03/19/18 Range/Units 05:40 WBC 6.3 (4.3-11.1) K/mcL Hgb 13.1 (12.9-16.9) g/dL Hct 38.9 (37.5-50.1) % Plt Count 204 (140-400) K/mcL Neutrophils # 4.3 (1.6-8.9) K/mcL BMP 03/19/18 05:40 Sodium 137 Potassium 4.0 Chloride 107 Carbon Dioxide 22 L BUN 13 Creatinine 0.74 Glucose 90 Calcium 8.9 Consult Discharge Plan - Plan Referrals: Shruthi Talamantes, ENDS BREAKAGE CLERK [Primary Care Provider] - 1 week
[2018-03-19] MEDS ORDERED: 0.45 % Sodium Chloride w/KCl 20 MEQ/1,000 ML MLS IVC SCH (15:46)
[2018-03-19] MEDS: rOPINIRole 1 MG TABLET PO SCH (20:17)
[2018-03-20] MEDS ORDERED: *HR* Enoxaparin 40 MG/0.4 ML SYRINGE SQ SCH (06:00)
[2018-03-20 06:28] VITALS: BP 148/76
[2018-03-20] MEDS: Mag Hydrox/Al Hydrox/Simeth 30 ML UDC PO PRN (08:11)
[2018-03-20] MEDS: Aspirin 81 MG TAB.CHEW PO SCH (08:13)
[2018-03-20] MEDS: Finasteride 5 MG TABLET PO SCH (08:13)
[2018-03-20] MEDS: ALBUTEROL SULFATE 2 MG PO SCH (08:16)
[2018-03-20] MEDS: Budesonide/Formoterol 80/4.5 MDI IH SCH (09:38)
[2018-03-20] MEDS: Tiotropium 18 MCG inhalation IH SCH (09:39)
--- NOTE | 2018-03-20 10:42 | Discharge Summary ---
Date of Encounter: 03/20/18 Time of Encounter: 10:30 - Discharge Diagnosis (1) Partial small bowel obstruction Priority: Primary Status: Resolved (2) Hypertension Priority: Secondary Status: Chronic Qualifiers: Hypertension type: essential hypertension Qualified Code(s): I10 - Essential (primary) hypertension (3) Hypothyroid Priority: Secondary Status: Chronic Qualifiers: Hypothyroidism type: unspecified Qualified Code(s): E03.9 - Hypothyroidism , unspecified (4) Anemia Priority: Secondary Status: Acute Qualifiers: Anemia type: unspecified type Qualified Code(s): D64.9 - Anemia, unspecified Hospital course: Mr. Sharma is a 87 year old male who came to emergency room complaining of cramps and nausea onset 0900 day of admission. He had no vomiting or diarrhea. When symptoms did not resolve after a few hours he came to emergency room for evaluation. Abdominal/pelvic CT showed possible early partial small bowel obstruction. He was admitted to [facility] for ongoing care needs. Initial orders were written by the emergency room physician. I saw him on March 18 and performed the history and physical. He was given IV fluids and ice chips initially. He had resolution of cramps and nausea by the end of the first hospital day. Diet was advanced and he tolerated adequate amounts of food and fluids orally. He had flatus. On March 20 he felt significantly improved and wished to be discharged home which I felt was reasonable. He will follow with his PCP Shruthi Talamantes CNP within 1 week. Anemia testing showed iron 50, transferrin saturation 19%, transferrin 192, and ferritin 130. TSH is normal at 2.618. - Time Spent with Patient Total time spent providing and/or coordinating discharge services: - Discharge Medications Home Medications: Albuterol Sulfate [Proventil] 2 mg PO TID 10/26/15 [History] Finasteride [Proscar] 5 mg PO DAILY 10/26/15 [History] Fluticasone/Salmeterol [Advair 250-50 Diskus] 1 puff IN BID 10/26/15 [History] Furosemide [Lasix] 20 mg PO DAILY 10/26/15 [History] Meclizine [Antivert] 25 mg PO BID 10/26/15 [History] Ropinirole HCl [Requip] 0.5 mg PO HS 10/26/15 [History] Simvastatin [Zocor] 20 mg PO HS 10/26/15 [History] Terazosin [Hytrin] 5 mg PO DAILY 10/26/15 [History] Tiotropium [Spiriva] 1 mcg IH DAILY 10/26/15 [History] Aspirin 81 mg PO DAILY 05/12/16 [History] Famotidine [Pepcid] 20 mg PO DAILY 05/12/16 [History] Levothyroxine [Synthroid] 75 mcg PO DAILY #30 tablet 03/10/17 [Rx] Lisinopril [Zestril] 10 mg PO DAILY 03/10/17 [History] Ascorbic Acid [Vitamin C] 500 mg PO DAILY #30 tablet 08/08/17 [Rx] Ferrous Sulfate 325 mg PO DAILY #30 tablet 08/08/17 [Rx] Allergies/Adverse Reactions: 3 Allergy/AdvReac Type Severity Reaction Status Date / Time morphine AdvReac Confusion Verified 02/19/18 10:59 Date of admission: 03/19/18 17:58 Primary care physician: Shruthi Talamantes CNP - Constitutional Vitals: Temp Pulse Resp BP Pulse Ox 97.4 F L 75 18 148/76 92 03/20/18 06:27 03/20/18 06:27 03/20/18 09:40 03/20/18 06:27 03/20/18 09:40 - Patient Status Disposition: Home, Self-Care Condition: Good - Discharge Instructions Follow Up With: Shruthi Talamantes CNP [Primary Care Provider] - 1 week - Diet and Activity Activity: resume usual activities as tolerated Diet: advance to your usual diet
== END 2018-03-20 12:02 | disposition home or self-care (01) | DRG 389 ==
LOC: INPPIK 13:05 → EMEROOPIK 13:05 → INPPIK 15:37
PROVIDERS: ADMIT Internal Medicine; ATTEND Internal Medicine